=== PATIENT | male | born 1965 | race African-American/Black ===

== ENCOUNTER 2016-11-23 14:46 | Emergency (ER) | payer OTHER ==
[~2016-11-23] VITALS: Ht 190.5 cm; Wt 98.3 kg
[~2016-11-23 14:46] MED LIST: COGENTIN1 MG PO; PROLIXIN DEC25 MG/ML IM
[2016-11-23 16:29] VITALS: BP 125/89
== END 2016-11-23 16:30 | disposition home or self-care (01) ==
LOC: EME 14:46
DX: F20.9 Schizophrenia, unspecified (principal); F17.200 Nicotine dependence, unspecified, uncomplicated
CPT/HCPCS: 99281; 99283; J2680

== ENCOUNTER 2017-01-16 10:18 | Emergency (ER) | payer OTHER ==
[~2017-01-16] VITALS: Ht 190.5 cm; Wt 94.0 kg
[2017-01-16 12:14] VITALS: BP 105/90
== END 2017-01-16 12:17 | disposition home or self-care (01) ==
LOC: EME 10:18
DX: Z71.89 Other specified counseling (principal); F20.9 Schizophrenia, unspecified
CPT/HCPCS: 99281; 99284

== ENCOUNTER 2017-02-16 09:15 | Emergency (ER) | payer OTHER ==
[~2017-02-16] VITALS: Ht 190.5 cm; Wt 90.8 kg
[2017-02-16 09:18] VITALS: BP 134/96
== END 2017-02-16 11:43 | disposition home or self-care (01) ==
LOC: EME 09:15
DX: Z76.0 Encounter for issue of repeat prescription (principal); F20.9 Schizophrenia, unspecified
CPT/HCPCS: 99281; 99283; J2680

== ENCOUNTER 2017-04-26 14:08 | Emergency (ER) | payer OTHER ==
[~2017-04-26] VITALS: Ht 190.5 cm; Wt 87.6 kg
[2017-04-26 17:07] VITALS: BP 132/76
== END 2017-04-26 17:11 | disposition home or self-care (01) ==
LOC: EME 14:08 → EXP 14:08
DX: S99.921A Unspecified injury of right foot, initial encounter (principal); W18.30XA Fall on same level, unspecified, initial encounter; I10 Essential (primary) hypertension; F17.200 Nicotine dependence, unspecified, uncomplicated
CPT/HCPCS: 73630; 99281; 99284